=== PATIENT | female | born 1990 | race Caucasian/White ===

== ENCOUNTER → 2016-08-18 | Outpatient (CLI) | payer BC | END | disposition home or self-care (01) | LOC: C.PAPS 11:24 | PROVIDERS: ATTEND Obstetrics & Gynecology | DX: Z01.419 Encounter for gynecological examination (general) (routine) without abnormal findings (principal) ==

== ENCOUNTER 2022-06-09 17:20 | Inpatient (IN) ==
[2022-06-09] MEDS ORDERED: OXYTOCIN 30 UNITS/500 ML BAG IV PRN ×2 (18:38→18:54)
[2022-06-09] MEDS ORDERED: LIDOCAINE 1% LOCAL 20 ML VIAL INFIL PRN (18:38)
[2022-06-09] MEDS ORDERED: PENICILLIN G POTASSIUM 6 MU in DEXTROSE 5% 250 ML IV STA (18:44)
[2022-06-09] MEDS ORDERED: PENICILLIN G POTASSIUM 3 MU in DEXTROSE 5% 100 ML IV SCH (18:45)
[2022-06-09] MEDS: LACTATED RINGER'S 1,000 ML IV PRN (19:00)
[2022-06-09 19:53] LABS: Hemoglobin 13.1 g/dl (12.0-16.0); Mean Corpuscular Hemoglobin 32.5 pg (25.0-34.0); Mean Corpuscular Hgb Conc 34.5 g/dL (32.0-36.0); Mean Corpuscular Volume 94.3 fL (80.0-100.0); Mean Platelet Volume 11.1 fL (9.4-12.4); Platelet Count 235 K/uL (130-400); RDW Coefficient of Variation 12.3 % (11.5-14.5); RDW Standard Deviation 42.6 fL (36.4-46.3); Red Blood Count 4.03 M/uL (4.20-5.40); White Blood Count 10.42 K/ul (4.8-10.8)
--- NOTE | 2022-06-09 20:24 | History & Physical Report ---
Date of Service June 09, 2022 Assessment & Plan (1) PROM (premature rupture of membranes): (2) Obesity affecting , antepartum: (3) Carrier of group B Streptococcus: Willis Mcclendon is a 32-year-old currently at 39 weeks 2 days gestational age presents with pre mature rupture of membranes. 1. Fetus: Cat 1 2. Labor: Not laboring. Pitocin per regular protocol. 3. GBS positive: PCN 4. Vitals: WNL Admission and Anticipated Discharge Date Admission Date: June 09, 2022 History of Present Illness Primary Care Provider: Gee Dominguez, DO Mcclendon is a 32-year-old at 39 weeks 2 days gestational age for of membranes. Patient reports leakage of fluid starting around 430 this afternoon. She reports continued heavy watery discharge. Patient was noted to be grossly ruptured on exam. denies regular contractions or vaginal bleeding. Good movement. Obesity (BMI between 35-39 @ beginning of ) *Growth US @ 32 wks *Weekly NSTs @ 36wks GBS Positive *Treat in Labor. OB Labs: Blood Type O Positive 10/28/21 Antibody Screen NEGATIVE 10/28/21 Hemoglobin 12.7 g/dl (12.0-16.0) 03/24/22 Hematocrit 37.5 % (34.1-44.9) 03/24/22 Mean Corpuscular Volume 97.5 fL (80.0-100.0) 02/17/22 Platelet Count 249 K/uL (130-400) 02/17/22 Rubella IgG Antibody Immune (Immune) 10/28/21 Rapid Plasma Reagin Nonreactive (Nonreactive) 10/28/21 Hepatitis B Surface Antigen. NON-REACTIVE (NON-REACTIVE) 10/28/21 Hepatitis C Antibody (EIA) NON-REACTIVE (NON-REACTIVE) 10/28/21 HIV (1&2) Ag and Ab Confirmation NON-REACTIVE (NON-REACTIVE) 10/28/21 Glucose 1 Hour 50 gm Load 110 mg/dl (70-130) 03/24/22 OB Optional Labs: Chlamydia trachomatis RNA NOT DETECTED (NOT DETECTED) 10/28/21 Neisseria gonorrhoeae RNA NOT DETECTED (NOT DETECTED) 10/28/21 Thyroid Stimulating Hormone (TSH) 0.910 uIu/ml (0.300-4.500) 02/17/22 Labs Reviewed: Declines cf/sma--mln Declines cfdna--mln declines afp Allergies Allergy/AdvReac Type Severity Reaction Status Date / Time diazepam Allergy Intermediate HYPERACTIVI Verified 06/04/22 09:38 TY Home Medications Medication Instructions Recorded Confirmed Type acyclovir 800 mg tablet 400 mg PO DIRECTED PRN Cold 07/10/19 06/09/22 History Sores prenat.vits,janie,[id number] 1 tab PO DAILY 10/23/21 06/09/22 History Patient History Medical History (Updated 06/09/22 @ 20:24 by Matias Luu MD) History of chicken pox Hx of cold sores Surgical History (Updated 06/09/22 @ 18:02 by Rosalind Kaplan RN) H/O hand surgery S/P LASIK surgery Warts destruction of flat warts by laser [place] teeth extracted Family History Father Colonic polyp Hypertension Hypercholesterolemia Diabetes Grandmother (Maternal) Colorectal cancer Diabetes Ovarian cancer Venous thrombosis of lower extremity Grandmother (Paternal) Breast cancer Grandfather (Paternal) Pancreatic cancer Social History Smoking Status: Never smoker Second Hand Exposure: No; Do You Dip or Chew Tobacco: No; Tobacco Cessation Education Requested by Patient: No Hx Alcohol Use: No Hx Substance Use: No Preferred Language: Bengali Communication Ability: Effective Body Shop Manager Required: No Beliefs That Will Affect Care: None marital status: marital status details: Mauricio Johnson (30) [phone] Current Living Situation: Spouse Current Living Situation Comment: Pt lives with spouse Mauricio and dm Luther current occupational status: employed 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 Other Information That Helps Us Care for You: No Feels Safe at Home: Yes Safety Concerns: Feels Safe At This Time Assistive Devices: None Physical Exam Genitourinary: OB Exam Abdomen: + vertex ( By ultrasound) Manual OB Exam: + cervical dilation fingertip, + cervical effacement 20%, + station high and + amniotic fluid (PROM) clear OB Exam Monitor Tracing: + external FHT monitor used, + external uterine monitor used, + category I and + normal FHT variability Results & Data ([facility]) Vital Signs (Past 12 Hours) Vital Signs Temp Pulse Resp BP O2 Del Method 06/09/22 19:12 37.2 C 84 18 120/73 06/09/22 18:54 78 124/72 06/09/22 17:32 110 H 130/86 06/09/22 17:33 37.1 C 18 Room Air Coding Level of Care Code None Diagnoses PROM (premature rupture of membranes) O42.90 Obesity affecting , antepartum O99.210 Carrier of group B Streptococcus Z22.330
[2022-06-09] MEDS ORDERED: fentaNYL citrate 100 MCG/2 ML VIAL ONE (23:22)
[2022-06-09] MEDS ORDERED: ePHEDrine sulfate 50 MG/ML AMP ONE (23:22)
[2022-06-09] MEDS ORDERED: LIDOCAINE 2%/EPINEPHRINE 1:200,000 20 ML SDV ONE (23:23)
[2022-06-09] MEDS ORDERED: BUPIVACAINE 0.25% 30 ML VIAL ONE (23:23)
[2022-06-09] MEDS ORDERED: fentaNYL 2MCG/ML ROPIVACAINE 1.25MG/ML 100 ML BAG EPI ONE (23:23)
[2022-06-09] MEDS ORDERED: SODIUM CHLORIDE 0.9% INJ 10 ML VIAL ONE (23:23)
[2022-06-09] MEDS: PENICILLIN G POTASSIUM 3 MU in DEXTROSE 5% 100 ML IV PRN (23:30)
[2022-06-09] MEDS ORDERED: NALBUPHINE HCL INJ 10 MG/ML AMP IV PRN (23:43)
[2022-06-09] MEDS ORDERED: NALOXONE HCL 1 MG in SODIUM CHLORIDE 0.9% 1000ML 1,000 ML IV PRN (23:43)
[2022-06-09] MEDS ORDERED: NALOXONE HCL 0.4 MG/1 ML VIAL/CARP IV PRN (23:43)
[2022-06-09] MEDS ORDERED: diphenhydrAMINE 50 MG/ML VIAL IV PRN (23:43)
[2022-06-09] MEDS ORDERED: ePHEDrine sulfate 50 MG/ML AMP IV PRN (23:43)
[2022-06-09] MEDS ORDERED: fentaNYL 2MCG/ML ROPIVACAINE 1.25MG/ML 100 ML BAG EPI PRN (23:43)
--- NOTE | 2022-06-09 23:43 | Anesthesiology Consultation ---
Date of Service June 09, 2022 Assessment & Plan ASA ASA2 Proposed Anesthesia Anesthesia Type: Labor Epidural Risk / Benefits Reviewed With: PT / POA / Parent / Guardian, Accepts Plan and Informed Consent Obtained History Height/Weight Height: 5 ft 3 in Weight: 107.955 kg Allergies Allergy/AdvReac Type Severity Reaction Status Date / Time diazepam Allergy Intermediate HYPERACTIVI Verified 06/04/22 09:38 TY Medications Home Medications Medication Instructions Recorded Confirmed Last Taken acyclovir 800 mg tablet 400 mg PO DIRECTED PRN Cold 07/10/19 06/09/22 04/28/22 Sores prenat.vits,janie,[id number] 1 tab PO DAILY 10/23/21 06/09/22 06/08/22 21:00 Active Medications Generic Name Dose Route Start Last Admin Trade Name Freq PRN Reason Stop Dose Admin Lactated Ringer's 1,000 mls @ 125 mls/hr 06/09/22 18:38 06/10/22 00:05 Lr IV 06/11/22 18:37 Infused .Q8H PRN Infusion L&D Protocol Protocol Penicillin G Potassium 3 mu/ 106 mls @ 100 mls/hr 06/09/22 19:00 06/10/22 00:29 Dextrose IV 06/19/22 18:44 0 mls/hr Q4H PRN Titration GBS POSITIVE Protocol Oxytocin 30 units in 500 mls @ 18 mls/hr 06/09/22 18:54 06/09/22 23:35 Pitocin IV 06/11/22 18:53 1.08 units/hr .Q24H PRN 18 mls/hr Labor Induction/Augmentation Titration Protocol 1.08 UNITS/HR Past Medical History Medical History History of chicken pox Hx of cold sores Exercise / Class Metabolic Activity II 4-5 Yardwork/Stairs/Walk up hill Past Family History Family History Father Colonic polyp Hypertension Hypercholesterolemia Diabetes Grandmother (Maternal) Colorectal cancer Diabetes Ovarian cancer Venous thrombosis of lower extremity Grandmother (Paternal) Breast cancer Grandfather (Paternal) Pancreatic cancer Past Surgical History Surgical History H/O hand surgery S/P LASIK surgery Warts destruction of flat warts by laser [place] teeth extracted Past Anesthesia History No Hx of Anesthesia Complications and No Family Hx of Anesthesia Complications History of PONV No Hx of PONV and No Hx of Motion Sickness Social History Smoking Status: Never smoker Do You Dip or Chew Tobacco: No Hx Alcohol Use: No Hx Substance Use: No Review of Systems denies fever/cough/ colds/ chest pain/ SOB/ WALDO denies WALDO Physical Exam Vital Signs Last Vital Signs Temp 36.8 C 06/09/22 23:00 Pulse 75 06/10/22 00:32 Resp 18 06/10/22 00:27 BP 106/68 06/10/22 00:32 Pulse Ox 98 06/10/22 00:31 O2 Del Method Room Air 06/09/22 17:33 ENMT Mouth: no TMJ abnormality and no dentition abnormality Thyromental Distance: > or= 3.5 Finger Breadths Mallampati Class: II Neck neck extension not limited Respiratory normal respiratory effort; no respiratory distress Auscultation: lungs clear to auscultation bilaterally Cardiovascular Rate/Rhythm: regular rate and regular rhythm Neurologic moves all extremities Psychiatric Orientation: alert and oriented x 3 Testing Laboratory Results 06/09/22 18:57 Blood Type O Positive 06/09/22 18:57 Antibody Screen NEGATIVE 06/09/22 18:57
[2022-06-10] MEDS: LACTATED RINGER'S 1,000 ML IV PRN ×2 (00:42→02:59)
[2022-06-10] MEDS: PENICILLIN G POTASSIUM 3 MU in DEXTROSE 5% 100 ML IV PRN (03:47)
[2022-06-10] MEDS ORDERED: ONDANSETRON INJ 2 MG/ML 2 ML VIAL IV PRN (04:16)
[2022-06-10] MEDS ORDERED: LIDOCAINE 1% MPF 5 ML VIAL ONE (07:42)
[2022-06-10] MEDS ORDERED: DIPHTHERIA/TETANUS/PERTUSSIS 0.5mL SYR/VIAL (Age 7+yrs) IM ONE (08:30)
[2022-06-10] MEDS ORDERED: bisacodyL 10 MG SUPP PR PRN (08:30)
[2022-06-10] MEDS ORDERED: HYDROCORTISONE ACETATE 25 MG SUPP PR PRN (08:30)
[2022-06-10] MEDS ORDERED: BENZOCAINE 20% AER SPR 82.5 GM CAN EXT PRN (08:30)
[2022-06-10] MEDS ORDERED: ACETAMINOPHEN 325 MG TAB ONE (08:30)
[2022-06-10] MEDS ORDERED: OXYTOCIN 30 UNITS/500 ML BAG IV PRN (08:30)
--- NOTE | 2022-06-10 09:33 | Anesthesia Procedure Note ---
Date of Service June 10, 2022 Anesthesia Post Epidural Note Vital Signs Vital Signs: Temp Pulse Resp BP Pulse Ox O2 Del Method 36.8 C 93 H 18 132/58 L 96 Room Air 06/10/22 07:04 06/10/22 09:11 06/10/22 08:15 06/10/22 09:11 06/10/22 07:27 06/09/22 17:33 Pain Intensity Bilateral Lower Abdomen: Pain Intensity: 0 Notes Mental Status: alert / awake / arousable and participated in evaluation Nausea / Vomiting: adequately controlled Pain: adequately controlled Airway Patency, RR, SpO2: stable & adequate BP & HR: stable & adequate Hydration State: stable & adequate Neuraxial Anesthesia: was administered and sensory block is resolving Anesthetic Complications: no major complications apparent Epidural: Removed without complications and With tip intact
--- NOTE | 2022-06-10 10:07 | Delivery Summary ---
DATE OF SERVICE: 06/10/2022 PROCEDURE: Normal spontaneous vaginal delivery with a second-degree perineal laceration repair. SURGEON: Matias Luu MD. PREOPERATIVE DIAGNOSES: 1. Single intrauterine at 39 weeks gestational age. 2. Spontaneous rupture of membranes. 3. GBS positive. 4. BMI greater than 35. POSTOPERATIVE DIAGNOSES: 1. Single intrauterine at 39 weeks gestational age. 2. Spontaneous rupture of membranes. 3. GBS positive. 4. BMI greater than 35. 5. Status post procedure. ESTIMATED BLOOD LOSS: 300 mL DRAINS: None. FLUIDS: Continuous lactated Ringer. URINE OUTPUT: None. COMPLICATIONS: None. FINDINGS: Viable female with weight and Apgars pending. DESCRIPTION OF PROCEDURE: The patient progressed to 10 cm dilated, 100% effaced, positive 2 station, pushed over intact perineum with epidural anesthesia and delivered a viable female with weig ht and Apgars as noted above. Head of the delivered in DANIEL position, restituted to left beltran sverse. A loose nuchal was noted, which was easily reduced. Body and shoulders quickly followed. N eonate was noted to be vigorous soon after delivery and a 1-minute delayed cord clamping was initiate d. Cord was then double clamped and cut. remained on maternal abdomen. Cord blood was obta ined. Attention was then turned to delivery of placenta, which was delivered intact, 3-vessel cord, gentle cord traction. On inspection of the perineum, vagina, cervix, there was noted to be a second- degree perineal laceration. A 10 mL of lidocaine were distributed throughout the laceration to aid i n anesthesia and the second-degree perineal laceration was repaired with a traditional crown stitch a nd with 3-0 Vicryl. Needle, sponge, and instrument counts were correct at the completion of the case with mother and stable in the immediate post-delivery period. Job ID: [id number]
[2022-06-10] MEDS: IBUPROFEN 600 MG TAB PO PRN ×3 (12:46→20:45)
[2022-06-10] MEDS: ACETAMINOPHEN 325 MG TAB PO PRN (15:45)
[2022-06-10] MEDS: DOCUSATE SODIUM 100 MG CAP PO SCH (20:17)
[2022-06-11] MEDS: ACETAMINOPHEN 325 MG TAB PO PRN
[2022-06-11] MEDS: IBUPROFEN 600 MG TAB PO PRN ×4 (04:46→18:46)
--- NOTE | 2022-06-11 06:59 | Obstetrical Progress Note ---
Date of Service June 11, 2022 Assessment & Plan (1) care following vaginal delivery: (2) Carrier of group B Streptococcus: Plan - Overall, feeling well and eating well today - feeding going well without concern - Urinating and passing gas appropriately - Ambulating well in room - Pain controlled w/ Ibuprofen/Tylenol - Hgb 13/1 on 06/09 - Vitals stable and wnl - Routine PP care progressing well - Anticipate discharge @ 24-48 hours PP - Recommending f/u outpatient in 6 weeks Admission and Anticipated Discharge Date Admission Date: June 09, 2022 Supervising Physician Co-Signing Physician Notes Resident Physician Supervision Note: I interviewed and examined the patient. Discussed with Dr. Gore and agree with findings and plan as documented in the note. Any exceptions or clarifications are listed here: PPD#1 doing well. Documented By: Moni Verdugo, DO Subjective Patient is a 32F who is PPD #1 following delivery at 39 2/7. She reports feeling well overall this morning. - Ambulation - well throughout room - Voiding/Graham - independent voids, no dysuria or pressure - Gas/Stool - passing gas, no bowel movement - Diet - regular, no nausea or emesis - Lochia - diminishing, light amount - Feeding Type - breast feeding w/ shield - Pain Level - 0/10, controlled with Ibuprofen/Tylenol Review of Systems - Denies fever, chills, sweats - Denies shortness of breath, difficulty breathing, chest pain, palpitations, chest pressure. - Denies breast pain. - Denies dysuria. - Denies headache or changes in vision. Physical Exam Physical Exam: General: Alert, oriented. No acute distress. Cardiac: RRR, normal S1/S2, no murmurs/rubs/gallops. Respiratory: Non-labored, CTAB, no wheezes/rales/rhonchi. Symmetric chest rise. Abdomen: Soft, nontender, nondistended. Bowel sounds present. Uterus: Uterine fundus firm, palpable 2 cm below umbilicus. Lower Extremities: No lower extremity edema or swelling. No deep calf pain. Neetu's negative bilaterally. Results & Data ([facility]) Vital Signs (Past 12 Hours) Vital Signs Temp Pulse Resp BP 06/11/22 04:45 36.7 C 87 18 118/77 06/11/22 00:00 36.7 C 94 H 18 119/77 06/10/22 20:40 36.8 C 92 H 18 108/75 Resident Activity Tracking Resident Involvement: Resident Care Provided Care Provided: OB Delivery
[2022-06-11 07:17] LABS: Hematocrit (blood only) 32.8 % (37.0-47.0); Hemoglobin 11.2 g/dl (12.0-16.0)
[2022-06-11] MEDS: DOCUSATE SODIUM 100 MG CAP PO SCH ×2 (07:41→20:55)
[2022-06-11] MEDS: FERROUS SULFATE 325 MG TAB PO SCH (07:41)
[2022-06-11] MEDS: PRENATAL VITAMIN 1 TAB PO SCH (07:41)
[2022-06-11] MEDS ORDERED: bisacodyL 5 MG TABEC PO SCH (20:00)
[2022-06-12] MEDS: IBUPROFEN 600 MG TAB PO PRN ×2 (00:05→07:20)
--- NOTE | 2022-06-12 06:15 | Obstetrical Progress Note ---
Date of Service June 12, 2022 Assessment & Plan (1) care following vaginal delivery: (2) Carrier of group B Streptococcus: Plan - Overall, feeling well and eating well today - feeding going well without concern - Urinating and passing gas appropriately - Ambulating well in room - Pain controlled w/ Ibuprofen - Hgb 13.1 on 06/09, 11.2 on 06/11 - Vitals stable and wnl - Routine PP care progressing well - Anticipate discharge @ 24-48 hours PP - Recommending f/u outpatient in 6 weeks Admission and Anticipated Discharge Date Admission Date: June 09, 2022 Supervising Physician Co-Signing Physician Notes Resident Physician Supervision Note: I interviewed and examined the patient. Discussed with Dr. Gore and agree with findings and plan as documented in the note. Any exceptions or clarifications are listed here: [None] Documented By: Maria Elena Ferrara MD, FACOG Subjective Patient is a 32F who is PPD #2 following delivery at 39 2/7. She reports feeling well overall this morning. - Ambulation - well throughout room - Voiding/Graham - independent voids, no dysuria or pressure - Gas/Stool - passing gas, no bowel movement - Diet - regular, no nausea or emesis - Lochia - diminishing, light amount - Infant Feeding Type - breast feeding w/ shield - Pain Level - 5/10, controlled with Ibuprofen Review of Systems - Denies fever, chills, sweats - Denies shortness of breath, difficulty breathing, chest pain, palpitations, chest pressure. - Denies breast pain. - Denies dysuria. - Denies headache or changes in vision. Physical Exam Physical Exam: General: Alert, oriented. No acute distress. Cardiac: RRR, normal S1/S2, no murmurs/rubs/gallops. Respiratory: Non-labored, CTAB, no wheezes/rales/rhonchi. Symmetric chest rise. Abdomen: Soft, nontender, nondistended. Bowel sounds present. Uterus: Uterine fundus firm, palpable 2 cm below umbilicus. Lower Extremities: No lower extremity edema or swelling. No deep calf pain. Neetu's negative bilaterally. Results & Data ([facility]) Vital Signs (Past 12 Hours) Vital Signs Temp Pulse Resp BP BP Pulse Ox O2 Del Method 06/12/22 03:40 36.7 C 71 18 101/61 95 Room Air 06/11/22 23:10 36.5 C 83 20 119/76 97 Room Air 06/11/22 20:45 37.0 C 92 H 18 108/72 97 Room Air Resident Activity Tracking Resident Involvement: Resident Care Provided Care Provided: OB Delivery
[2022-06-12] MEDS: FERROUS SULFATE 325 MG TAB PO SCH (07:20)
[2022-06-12] MEDS: DOCUSATE SODIUM 100 MG CAP PO SCH (07:20)
[2022-06-12] MEDS: PRENATAL VITAMIN 1 TAB PO SCH (07:21)
== END 2022-06-12 13:30 | disposition home or self-care (01) | DRG 807 ==
LOC: OPB 17:20 → 4S1 17:22 → 4E2 06-10 12:57

== ENCOUNTER 2025-01-01 07:33 | Inpatient (IN) ==
[2025-01-01] MEDS ORDERED: OXYTOCIN 30 UNITS/NSS 30 UNITS/500 ML BAG IV PRN ×2 (08:58→20:15)
--- NOTE | 2025-01-01 09:05 | History & Physical Report ---
Date of Service January 01, 2025 Assessment & Plan (1) Encounter for induction of labor: (2) Group B streptococcal infection during : (3) Obesity affecting , antepartum: Plan This is a 34 y/o at 39w 6d presenting for induction of labor. Her was complicated by obesity and GBS positive. Pitocin ordered Graham bulb placed AROM when indicated Monitor tracing, category 1 GBS positive - penicillin 6 mu IV ordered Epidural if/when needed CBC pending IV fluids Admission and Anticipated Discharge Date Admission Date: January 01, 2025 History of Present Illness Chief Complaint: induction of labor Primary Care Provider: Gee Dominguez DO Danelle Johnson is a 34 y/o currently at 39w 6d with an KRUPA 01/02/25 determined by ultrasound who is here for induction of labor. Her was complicated by obesity and GBS positivity. External FHT and external uterine monitors used; Category 1 tracing; moderate variability FHT variability. Had regular appointments with OB. OB Labs: Blood Type O Positive 05/29/24 Antibody Screen NEGATIVE 05/29/24 Hgb 12.2 g/dl (12.0-16.0) 10/10/24 Hct 37.2 % (37.0-47.0) 10/10/24 MCV 94.9 fL (80.0-100.0) 05/29/24 Plt Count 319 K/uL (130-400) 05/29/24 Rubella IgG Antibody Immune (Immune) 05/29/24 RPR Nonreactive (Nonreactive) 10/28/21 Treponema pallidum Ab Negative (Negative) 10/10/24 Hep Bs Antigen Negative (Negative) 05/29/24 Hep Bs Antigen NON-REACTIVE (NON-REACTIVE) 10/28/21 Hepatitis C Antibody Negative (Negative) 05/29/24 Hepatitis C Ab (EIA) NON-REACTIVE (NON-REACTIVE) 10/28/21 HIV 1&2 Ab/P24 Ag 4thGn Negative (Negative) 05/29/24 HIV (1&2) Ag & Ab Conf NON-REACTIVE (NON-REACTIVE) 10/28/21 Glucose 1 Hr 50 gm 113 mg/dl (70-130) 10/10/24 OB Optional Labs: Chlamydia trachomatis RNA Not Detected (NotDetected) 05/29/24 Neisseria gonorrhoeae RNA Not Detected (NotDetected) 05/29/24 Thyroid Stimulating Hormone (TSH) 0.910 uIu/ml (0.300-4.500) 02/17/22 Labs Reviewed: declines cfdna, cf/sma - sln gbs positive Allergies Allergy/AdvReac Type Severity Reaction Status Date / Time diazepam Allergy Intermediate HYPERACTIVI Verified 12/31/24 08:48 TY Home Medications Medication Instructions Recorded Confirmed Type prenat.vits,janie,qof-nlwz-ocgln 1 tab PO DAILY 10/23/21 01/01/25 History famotidine 20 mg tablet (Pepcid) 20 mg PO BID 01/01/25 01/01/25 History Patient History Medical History Carrier of group B Streptococcus Menorrhagia with irregular cycle Polycystic ovarian syndrome Hx of cold sores History of chicken pox Surgical History History of thumb surgery [place] teeth extracted S/P LASIK surgery H/O hand surgery Warts Family History Father Colonic polyp Hypertension Hypercholesterolemia Diabetes Grandmother (Maternal) Colorectal cancer Diabetes Ovarian cancer Venous thrombosis of lower extremity Grandmother (Paternal) Breast cancer Skin cancer Grandfather (Paternal) Pancreatic cancer Social History Smoking Status: Never smoker Second Hand Exposure: No; Do You Dip or Chew Tobacco: No; Hx Alcohol Use: No Hx Substance Use: No Preferred Language: Malay Communication Ability: Effective Feather Drying Machine Operator Required: No Beliefs That Will Affect Care: None marital status: marital status details: Mauricio Johnson (30) [phone] Current Living Situation: Spouse Current Living Situation Comment: Pt lives with spouse, child and dog Moose current occupational status: employed 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 Denies breast pain. Denies dysuria. Denies headache or changes in vision. Physical Exam Physical Exam: General: Alert, oriented. No acute distress. Cardiac: Regular rate and rhythm, no murmurs/rubs/gallops. Respiratory: Clear to auscultation bilaterally a/p, no wheezes/rales/rhonchi. No increased work of breathing. Symmetrical chest rise. No respiratory distress. Abdomen: Gravid; normal to inspection Lower Extremities: No lower extremity edema or swelling. No deep calf pain. Results & Data Vital Signs (Past 12 Hours) Vital Signs Temp Pulse Resp BP Pulse Ox 01/01/25 07:54 36.6 C 93 H 18 123/63 98 01/01/25 07:51 93 H 123/63 Supervising Physician Co-Signing Physician Notes Resident Physician Supervision Note: I interviewed and examined the patient. Discussed with Dr. Rojo and agree with findings and plan as documented in the note. Any exceptions or clarifications are listed here: Graham bulb placed, 35cc sterile water. 2/80/-2. Start pitocin. Plans for epidural. PCN for GBS+ Documented By: Moni Verdugo, DO
[2025-01-01 09:55] LABS: Hematocrit (blood only) 36.3 % (37.0-47.0); Hemoglobin 12.2 g/dl (12.0-16.0); Mean Corpuscular Hemoglobin 31.8 pg (25.0-34.0); Mean Corpuscular Volume 94.5 fL (80.0-100.0); Platelet Count 212 K/uL (130-400); RDW Standard Deviation 44.4 fL (36.4-46.3); Red Blood Count 3.84 M/uL (4.20-5.40); White Blood Count 7.13 K/ul (4.8-10.8)
[2025-01-01] MEDS: LACTATED RINGER'S 1,000 ML IV PRN (10:17)
[2025-01-01] MEDS: PENICILLIN GK 6 MU in DEXTROSE 5% 250 ML IV STA (10:19)
[2025-01-01] MEDS: OXYTOCIN 30 UNITS/NSS 30 UNITS/500 ML BAG IV PRN (10:24)
[2025-01-01] MEDS: PENICILLIN GK 3 MU in DEXTROSE 5% 100 ML IV PRN (14:17)
[2025-01-01] MEDS ORDERED: ROPIVACAINE 0.5% PF 5 MG/ML 20 ML VIAL EPI PRN (14:18)
[2025-01-01] MEDS ORDERED: fentANYL 2 MCG/ML BUPIVacaine 0.125%-NSS 100ML BAG EPI PRN (14:18)
[2025-01-01] MEDS ORDERED: diphenhydrAMINE 50 MG/ML VIAL IV PRN (14:18)
[2025-01-01] MEDS ORDERED: NALBUPHINE HCL INJ 10 MG/ML AMP IV PRN (14:18)
[2025-01-01] MEDS ORDERED: LIDOCAINE 2% MPF LOCAL 5 ML VIAL EPI PRN (14:18)
[2025-01-01] MEDS ORDERED: NALOXONE HCL 1 MG in SODIUM CHLORIDE 0.9% 1,000 ML IV PRN (14:18)
[2025-01-01] MEDS ORDERED: BUPIVACAINE 0.25% PF 30 ML VIAL EPI PRN (14:18)
[2025-01-01] MEDS ORDERED: SODIUM CHLORIDE 0.9% PF INJ 10 ML VIAL EPI PRN (14:18)
[2025-01-01] MEDS ORDERED: NALOXONE HCL 0.4 MG/1 ML VIAL/CARP IV PRN (14:18)
--- NOTE | 2025-01-01 14:20 | Anesthesiology Consultation ---
Date of Service January 01, 2025 Assessment & Plan (1) Encounter for pre-operative examination: Chart Review Chart Review: Patient NOT seen in Pre Admission Testing and Acceptable Risk for Labor Epidural Consults Requested none History Height/Weight Height: 5 ft 3 in Weight: 110.551 kg Allergies Allergy/AdvReac Type Severity Reaction Status Date / Time diazepam Allergy Intermediate HYPERACTIVI Verified 12/31/24 08:48 TY Medications Home Medications Medication Instructions Recorded Confirmed Last Taken prenat.vits,janie,kaq-reyr-mtilo 1 tab PO DAILY 10/23/21 01/01/25 12/31/24 famotidine 20 mg tablet (Pepcid) 20 mg PO BID 01/01/25 01/01/25 01/01/25 Active Medications Generic Name Dose Route Start Last Admin Trade Name Freq PRN Reason Stop Dose Admin Lactated Ringer's 1,000 mls @ 125 mls/hr 01/01/25 08:58 01/01/25 13:55 Lr IV 01/03/25 08:57 999 mls/hr .Q8H PRN Infusion L&D Protocol Protocol Penicillin G Potassium 3 mu/ 106 mls @ 100 mls/hr 01/01/25 11:59 01/01/25 14:17 Dextrose IV 01/11/25 11:58 100 mls/hr Q4H PRN Administration GBS(+) Until Delivery Oxytocin 30 units in 500 mls @ 11 mls/hr 01/01/25 10:20 01/01/25 13:30 Pitocin 30 Units/Nss IV 01/03/25 10:19 0.66 units/hr .Q24H PRN 11 mls/hr Labor Induction/Augmentation Titration Protocol 0.66 UNITS/HR Past Medical History Medical History Carrier of group B Streptococcus Menorrhagia with irregular cycle Polycystic ovarian syndrome Hx of cold sores History of chicken pox Past Family History Family History Father Colonic polyp Hypertension Hypercholesterolemia Diabetes Grandmother (Maternal) Colorectal cancer Diabetes Ovarian cancer Venous thrombosis of lower extremity Grandmother (Paternal) Breast cancer Skin cancer Grandfather (Paternal) Pancreatic cancer Past Surgical History Surgical History History of thumb surgery [place] teeth extracted S/P LASIK surgery H/O hand surgery Warts destruction of flat warts by laser Social History Smoking Status: Never smoker Do You Dip or Chew Tobacco: No Hx Alcohol Use: No Hx Substance Use: No Physical Exam Vital Signs Last Vital Signs Temp 98.1 F 01/01/25 11:00 Pulse 76 01/01/25 14:15 Resp 20 01/01/25 13:28 BP 121/63 01/01/25 13:28 Pulse Ox 99 01/01/25 14:15 Testing Laboratory Results 01/01/25 09:20 Blood Type O Positive 01/01/25 09:20 Antibody Screen NEGATIVE 01/01/25 09:20
[2025-01-01] MEDS: fentANYL 2 MCG/ML BUPIVacaine 0.125%-NSS 100ML BAG ONE (14:47)
[2025-01-01] MEDS: BUPIVACAINE 0.25% PF 30 ML VIAL ONE (14:48)
[2025-01-01] MEDS: LIDOCAINE 2%/EPINEPHRINE 1:200,000 20 ML PF ONE (14:49)
[2025-01-01] MEDS ORDERED: ONDANSETRON INJ 2 MG/ML 2 ML VIAL IV PRN (15:58)
[2025-01-01] MEDS: ONDANSETRON INJ 2 MG/ML 2 ML VIAL ONE (15:59)
[2025-01-01] MEDS: BUPIVACAINE 0.25% PF 30 ML VIAL EPI STA (16:15)
[2025-01-01] MEDS: LIDOCAINE 2%/EPINEPHRINE 1:200,000 20 ML PF EPI STA (16:15)
[2025-01-01] MEDS: SODIUM CHLORIDE 0.9% PF INJ 10 ML VIAL ONE (16:15)
[2025-01-01] MEDS: SODIUM CHLORIDE 0.9% PF INJ 10 ML VIAL EPI STA (16:15)
--- NOTE | 2025-01-01 17:01 | Labor Progress Brief Note ---
Date of Service January 01, 2025 Subjective FHT Cat 1 [place] Q 2 Comfortable with epidural. AROM clear fluid. SVE 5/80/-2 Assessment & Plan Admission and Anticipated Discharge Date Admission Date: January 01, 2025 Results & Data Vital Signs (Past 12 Hours) Vital Signs Temp Pulse Resp BP Pulse Ox 01/01/25 16:57 90 117/74 01/01/25 16:56 80 121/76 01/01/25 16:55 81 98 01/01/25 16:51 90 113/70 01/01/25 16:50 87 97 01/01/25 16:46 70 120/72 01/01/25 16:45 73 98 01/01/25 16:41 76 132/73 01/01/25 16:40 36.7 C 78 18 98 01/01/25 16:35 86 99 01/01/25 16:31 113 H 127/63 01/01/25 16:30 84 99 01/01/25 16:26 75 121/70 01/01/25 16:25 77 99 01/01/25 16:21 78 120/70 01/01/25 16:20 83 98 01/01/25 16:17 76 123/80 01/01/25 16:15 72 98 01/01/25 16:12 73 129/67 01/01/25 16:11 100 H 162/59 H 01/01/25 16:10 77 99 01/01/25 16:05 98 01/01/25 16:05 74 01/01/25 16:05 66 118/70 01/01/25 16:02 71 117/69 01/01/25 16:00 71 100 01/01/25 15:57 81 129/68 01/01/25 15:55 83 99 01/01/25 15:53 91 H 95/56 L 01/01/25 15:51 109 H 18 90/55 L 01/01/25 15:50 98 H 100 01/01/25 15:49 110 H 86/51 L 01/01/25 15:48 80 84/52 L 01/01/25 15:47 76 83/53 L 01/01/25 15:45 72 100 01/01/25 15:44 83 85/53 L 01/01/25 15:42 75 82/52 L 01/01/25 15:40 71 100 01/01/25 15:39 81 86/51 L 01/01/25 15:35 68 97/51 L 100 01/01/25 15:30 73 100 01/01/25 15:29 93 H 95/57 L 01/01/25 15:25 73 100 01/01/25 15:24 93 H 98/57 L 01/01/25 15:20 76 99 01/01/25 15:19 85 18 99/61 L 01/01/25 15:15 86 99 01/01/25 15:13 90 18 101/62 01/01/25 15:10 71 99 01/01/25 15:07 105 H 20 96/54 L 01/01/25 15:05 91 H 20 101/58 L 99 01/01/25 15:03 105 H 18 110/55 L 01/01/25 15:01 97 H 18 108/65 01/01/25 15:00 36.7 C 80 16 99 01/01/25 14:59 87 16 101/62 01/01/25 14:57 94 H 18 107/59 L 01/01/25 14:55 80 18 109/59 L 99 01/01/25 14:53 77 16 98/50 L 01/01/25 14:51 84 16 103/59 L 01/01/25 14:50 86 99 01/01/25 14:49 82 102/55 L 01/01/25 14:47 78 96/59 L 01/01/25 14:45 98 01/01/25 14:45 84 01/01/25 14:45 82 89/60 L 01/01/25 14:43 90 85/50 L 01/01/25 14:41 89 85/47 L 01/01/25 14:40 91 H 96 01/01/25 14:39 95 H 96/51 L 01/01/25 14:37 82 104/63 01/01/25 14:35 76 97 01/01/25 14:34 78 106/58 L 01/01/25 14:30 103 H 100 01/01/25 14:25 90 99 01/01/25 14:21 68 106/62 01/01/25 14:20 72 99 01/01/25 14:15 76 99 01/01/25 14:10 69 99 01/01/25 14:05 78 99 01/01/25 13:28 66 20 121/63 01/01/25 12:32 71 106/62 01/01/25 11:31 64 116/66 01/01/25 11:30 18 01/01/25 11:30 18 01/01/25 11:00 18 01/01/25 11:00 36.7 C 18 01/01/25 10:48 82 102/63 01/01/25 08:15 18 01/01/25 08:15 36.6 C 18 01/01/25 07:54 36.6 C 93 H 18 123/63 01/01/25 07:51 93 H 123/63 Coding Level of Care Code None
[2025-01-01] MEDS: LIDOCAINE 1% LOCAL 20 ML VIAL INFIL PRN (19:55)
--- NOTE | 2025-01-01 20:11 | Delivery Summary ---
Vaginal Delivery Summary Date of Service January 01, 2025 Vaginal Delivery Summary and 2nd Degree LAC Vaginal Delivery Summary: Pre-delivery diagnoses: 34yo @ 39 6/7, IOL, obesity, GBS+ Post-delivery diagnoses: same Procedure: spontaneous vaginal delivery Surgeon: Moni Verdugo DO Complications: none Findings: Viable male . Apgars: 8/9 . Weight pending, please see nursery records Estimated QBL: 137cc Description of delivery: The patient progressed to complete with epidural anesthesia. She then began to push. She spontaneously vaginally delivered a viable from the cephalic presentation. The head delivered in DANIEL position. The anterior shoulder delivered, followed by the posterior shoulder, followed by the body. No nuchal. The baby was placed on mother's abdomen and a spontaneous cry was heard. Delayed cord clamping was employed, and the cord was doubly clamped and cut. Cord blood was obtained. The placenta was delivered spontaneously intact with a 3-vessel cord. The uterus and vagina were swept of clots and debris. IV pitocin was given. The uterus became firm. The cervix, vagina, and perineum were inspected. 1% lidocaine infused for local anesthetic. 2nd degree perineal laceration repaired with 3-0 Vicryl. Excellent hemostasis was observed. The mother and baby are recovering in stable and good condition in the room. Sponge, needle and instrument counts were correct x 2. Moni Verdugo DO [facility] Vaginal Delivery Charge Vaginal Delivery Codes: 91171 global code for the antepartum, delivery, and post- Delivery Type Details: and 2nd Degree LAC
[2025-01-01] MEDS ORDERED: HYDROCORTISONE ACETATE 25 MG SUPP PR PRN (20:15)
--- NOTE | 2025-01-01 20:40 | Anesthesia Procedure Note ---
Date of Service January 01, 2025 Anesthesia Post Epidural Note Vital Signs Vital Signs: Temp Pulse Resp BP Pulse Ox 98.2 F 99 H 18 102/58 L 96 01/01/25 19:05 01/01/25 20:35 01/01/25 20:35 01/01/25 20:35 01/01/25 20:07 Pain Intensity Perineal: Pain Intensity: 6 Notes Mental Status: alert / awake / arousable and participated in evaluation Nausea / Vomiting: adequately controlled Pain: adequately controlled Airway Patency, RR, SpO2: stable & adequate BP & HR: stable & adequate Hydration State: stable & adequate Neuraxial Anesthesia: was administered and sensory block is resolving Anesthetic Complications: no major complications apparent and Pt Satisfied with anesthetic care Epidural: Removed without complications and With tip intact
[2025-01-01] MEDS: DOCUSATE SODIUM 100 MG CAP PO SCH (21:54)
[2025-01-01] MEDS: BENZOCAINE 20% SPRY 85 APPLN/85 GM CAN EXT PRN (21:54)
[2025-01-01] MEDS: FAMOTIDINE 20 MG TAB PO SCH (21:54)
[2025-01-01] MEDS: DIPHTHER/TETAN/PERTUS Vaccine (Tdap, Adol/Adult) 0.5mL IM ONE (21:55)
[2025-01-01] MEDS: IBUPROFEN 600 MG TAB PO PRN (23:07)
[2025-01-02 06:00] LABS: Hematocrit (blood only) 32.0 % (37.0-47.0); Hemoglobin 10.7 g/dl (12.0-16.0)
--- NOTE | 2025-01-02 06:33 | Obstetrical Progress Note ---
Date of Service January 02, 2025 Assessment & Plan (1) examination following vaginal delivery: (2) Obesity affecting , antepartum: (3) Group B streptococcal infection during : Plan 34 yo post- day 1 s/p whose was complicated by obesity and GBS+ Feels well today. Vital signs stable Continue post- care Encourage ambulation and Pain controlled with ibuprofen Hgb stable Discharge home tomorrow, follow up with Dr. Verdugo in 6 weeks. Admission and Anticipated Discharge Date Admission Date: January 01, 2025 Supervising Physician Co-Signing Physician Notes Resident Physician Supervision Note: I was present with Dr. Rojo during the history and exam. I discussed the case with the resident and agree with the findings and plan as documented in the note. Any exceptions or clarifications are listed here: [None] Documented By: Moni Vedrugo, DO Subjective 34 yo post- day 1 s/p whose was complicated by obesity and GBS+ Ambulation: ambulating normally Voiding: no voiding problems Passing Gas:: Yes Diet Tolerance:: regular diet Lochia:: Small Feeding Type:: breast Current Pain Level: minimal, well controlled with tylenol/ibuprofen Resting comfortably this AM in NAD. Denies REED, CP, SOB, N/V/D, LE pain/swelling. Review of Systems Review of Systems: All systems reviewed & are unremarkable except as noted in HPI & below Physical Exam Physical Exam: General: patient resting comfortably, NAD, non-toxic in appearance, AA&O x 4, answers questions appropriately. Skin: warm, dry, intact HEENT: NC/AT, anicteric sclera, conjunctiva without injection, moist mucus membranes. Heart: +S1/S2, regular, no m/r/g Lungs: equal air entry bilaterally, no rales/rhonchi/wheezes Abd: +BS, soft, NT/ND, uterine fundus firm at umbilicus. Ext: warm, no clubbing/cyanosis or edema. Neuro: nonfocal, patient AA&O x 4, speech intact, no facial droop, moving all extremities on command. Results & Data Vital Signs (Past 12 Hours) Vital Signs Temp Pulse Pulse Resp BP BP Pulse Ox 01/02/25 03:10 36.5 C 82 16 120/83 97 01/01/25 23:00 36.3 C L 109 H 16 106/66 96 01/01/25 22:05 18 01/01/25 22:05 98 H 104/61 01/01/25 21:50 91 H 112/63 01/01/25 21:35 18 01/01/25 21:34 109 H 108/62 01/01/25 21:20 139 H 102/50 L 01/01/25 21:05 18 01/01/25 21:05 96 H 140/65 01/01/25 20:50 18 01/01/25 20:50 106 H 103/56 L 01/01/25 20:35 18 01/01/25 20:35 99 H 102/58 L 01/01/25 20:20 18 01/01/25 20:19 101 H 105/60 01/01/25 20:07 117 H 96 01/01/25 20:05 18 01/01/25 20:05 110 H 112/61 01/01/25 20:02 117 H 97 01/01/25 19:57 114 H 96 01/01/25 19:52 124 H 97 01/01/25 19:47 139 H 97 01/01/25 19:43 152 H 82 L 01/01/25 19:42 156 H 97 01/01/25 19:40 166 H 108/72 01/01/25 19:35 89 97 01/01/25 19:30 84 98 01/01/25 19:25 94 H 97 01/01/25 19:24 101 H 111/57 L 01/01/25 19:20 97 H 97 01/01/25 19:15 111 H 98 01/01/25 19:10 119 H 98 01/01/25 19:09 60 118/66 01/01/25 19:05 36.8 C 18 01/01/25 19:05 102 H 98 01/01/25 19:00 110 H 100 01/01/25 18:55 95 H 99 01/01/25 18:54 90 112/60 01/01/25 18:50 94 H 98 01/01/25 18:45 94 H 99 01/01/25 18:40 84 99 01/01/25 18:39 92 H 107/57 L 01/01/25 18:35 78 99 O2 Del Method 01/02/25 03:10 Room Air 01/01/25 23:00 Room Air 01/01/25 22:05 01/01/25 22:05 01/01/25 21:50 01/01/25 21:35 01/01/25 21:34 01/01/25 21:20 01/01/25 21:05 01/01/25 21:05 01/01/25 20:50 01/01/25 20:50 01/01/25 20:35 01/01/25 20:35 01/01/25 20:20 01/01/25 20:19 01/01/25 20:07 01/01/25 20:05 01/01/25 20:05 01/01/25 20:02 01/01/25 19:57 01/01/25 19:52 01/01/25 19:47 01/01/25 19:43 01/01/25 19:42 01/01/25 19:40 01/01/25 19:35 01/01/25 19:30 01/01/25 19:25 01/01/25 19:24 01/01/25 19:20 01/01/25 19:15 01/01/25 19:10 01/01/25 19:09 01/01/25 19:05 01/01/25 19:05 01/01/25 19:00 01/01/25 18:55 01/01/25 18:54 01/01/25 18:50 01/01/25 18:45 01/01/25 18:40 01/01/25 18:39 01/01/25 18:35
[2025-01-02] MEDS: PRENATAL VITAMIN 1 TAB PO SCH (08:23)
[2025-01-02] MEDS: ACETAMINOPHEN 325 MG TAB PO PRN (11:31)
[2025-01-02 15:10] VITALS: RESP 16
[2025-01-03 00:54] VITALS: BP 106/69; PULSE 70; TEMP 97.3; O2SAT 96
--- NOTE | 2025-01-03 06:07 | Obstetrical Progress Note ---
Date of Service January 03, 2025 Assessment & Plan (1) examination following vaginal delivery: (2) Obesity affecting , antepartum: (3) Group B streptococcal infection during : Plan 34 yo post- day 2 s/p whose was complicated by obesity and GBS+ Feels well today. Vital signs stable Continue post- care Encourage ambulation and Pain controlled with ibuprofen Hgb stable Discharge home today, follow up with Dr. Verdugo in 6 weeks. Admission and Anticipated Discharge Date Admission Date: January 01, 2025 Supervising Physician Co-Signing Physician Notes Resident Physician Supervision Note: I interviewed and examined the patient. Discussed with Dr. Rojo and agree with findings and plan as documented in the note. Any exceptions or clarifications are listed here: Doing well. PLan d/c. INstructions given. Documented By: Lainey Pineda MD, FACOG Subjective 34 yo post- day 2 s/p whose was complicated by obesity and GBS+ Ambulation: ambulating normally Voiding: no voiding problems Passing Gas:: Yes Diet Tolerance:: regular diet Lochia:: Small Feeding Type:: bottle Current Pain Level: minimal Resting comfortably this AM in NAD. Denies REED, CP, SOB, N/V/D, LE pain/swelling. Review of Systems Review of Systems: Review of Systems Denies fever, chills, sweats Denies shortness of breath, difficulty breathing, chest pain, palpitations, chest pressure. Denies breast pain. Denies dysuria. Denies headache or changes in vision. Physical Exam Physical Exam: General: patient resting comfortably, NAD, non-toxic in appearance, AA&O x 4, answers questions appropriately. Skin: warm, dry, intact HEENT: NC/AT, anicteric sclera, conjunctiva without injection, moist mucus membranes. Heart: +S1/S2, regular, no m/r/g Lungs: equal air entry bilaterally, no rales/rhonchi/wheezes Abd: +BS, soft, NT/ND, uterine fundus firm at umbilicus. Ext: warm, no clubbing/cyanosis or edema. Neuro: nonfocal, patient AA&O x 4, speech intact, no facial droop, moving all extremities on command. Results & Data Vital Signs (Past 12 Hours) Vital Signs Temp Pulse Resp BP Pulse Ox O2 Del Method 01/02/25 23:20 36.3 C L 70 16 106/69 96 Room Air 01/02/25 19:30 36.4 C L 79 16 112/75 98 Room Air
== END 2025-01-03 10:10 | disposition home or self-care (01) | DRG 806 ==
LOC: 4S1 07:33 → 4E2 22:23